=== PATIENT | female | born 1965 | race African-American/Black ===

== ENCOUNTER 2018-04-09 18:17 | Emergency (ER) | payer OTHER ==
[~2018-04-09] VITALS: Ht 160 cm; Wt 59.0 kg
[~2018-04-09 18:17] MED LIST: AZITHROMYCIN 2250 MG PO; TRAMADOL 50 MG50 MG PO
[2018-04-09 18:32] LABS: URINE BILIRUBIN NEGATIVE (Negative); URINE BLOOD TRACE (Negative); URINE CLARITY CLEAR; URINE COLOR YELLOW; URINE GLUCOSE-RANDOM* NEGATIVE (Negative); URINE KETONES NEGATIVE (Negative); URINE LEUKOCYTES-REFLEX NEGATIVE (Negative); URINE NITRITE-REFLEX NEGATIVE (Negative); URINE PROTEIN (DIPSTICK) NEGATIVE (Negative); URINE SPECIFIC GRAVITY 1.015 (1.005-1.035); URINE UROBILINOGEN 0.2 E.U./dl (0.2-1.0)
[2018-04-09 19:04] LABS: ABSOLUTE NEUTROPHILS 2.8 thou/uL (1.4-8.2); BASOPHILS 0.1 % (0.0-2.0); EOSINOPHILS 0.4 % (0.0-3.0); HEMATOCRIT 37.6 % (37.0-47.0); HEMOGLOBIN 12.4 gm/dL (12.0-15.0); LYMPHOCYTES 36.3 % (24.0-44.0); MCH 27.5 pg (26.0-34.0); MCV 83.4 fL (80.0-100.0); MONOCYTES 9.7 % (1.0-8.0); PLATELET COUNT 288 thou/uL (150-400); POLYS 53.5 % (36.0-66.0); RDW 13.7 % (10.5-14.5); WBC 5.3 thou/uL (4.0-11.0)
[2018-04-09 19:11] LABS: CALCIUM 8.7 mg/dL (8.5-10.1); CREATININE 0.7 mg/dL (0.6-1.0); POTASSIUM 3.6 mmol/L (3.5-5.1)
[2018-04-09 19:17] LABS: ALBUMIN 3.6 g/dL (3.4-5.0); TOTAL BILIRUBIN 0.3 mg/dL (<0.1-1.0)
[2018-04-09] MEDS ORDERED: AMOXICILLIN 50500 MG PO (20:11)
[2018-04-09] MEDS ORDERED: ONDANSETRON HCL4 M2 PO (20:11)
[2018-04-09] MEDS ORDERED: LEVSIN0.125 MG PO (20:17)
[2018-04-09 20:41] VITALS: BP 98/61
== END 2018-04-09 20:41 | disposition home or self-care (01) ==
LOC: ER 18:17
PROVIDERS: Physician Assistant
DX: H66.92 Otitis media, unspecified, left ear (principal); R11.2 Nausea with vomiting, unspecified; R19.7 Diarrhea, unspecified; R51 Headache; R10.30 Lower abdominal pain, unspecified; Z88.6 Allergy status to analgesic agent; Z88.8 Allergy status to other drugs, medicaments and biological substances